=== PATIENT | female | born 1970 | race Caucasian/White ===

== ENCOUNTER 2025-05-26 14:04 | Outpatient (CLI) | payer OTHER | END 2025-05-26 14:05 | disposition home or self-care (01) | LOC: SCSMRI 14:04 | PROVIDERS: ATTEND Family Medicine | DX: M51.16 Intervertebral disc disorders with radiculopathy, lumbar region (principal); M51.17 Intervertebral disc disorders with radiculopathy, lumbosacral region; R16.0 Hepatomegaly, not elsewhere classified | CPT/HCPCS: 72148; 74183 ==